=== PATIENT | female | born 1995 | race Caucasian/White ===

== ENCOUNTER 2017-09-17 19:50 | Emergency (ER) | payer MEDICAID ==
[~2017-09-17] VITALS: Ht 162.6 cm; Wt 86.0 kg
[2017-09-17] MEDS ORDERED: SODIUM CHLORIDE 0.9% 1,000 ML IV ONE (20:53)
[2017-09-17 21:22] LABS: BASOPHILS % 0.7 % (0.0-2.0); EOSINOPHILS % 0.5 % (0.0-5.0); HEMATOCRIT. 43.4 % (36.0-48.0); HEMOGLOBIN. 14.9 g/dL (12.0-16.0); MEAN CORPUSCULAR HEMOGLOBIN 29.9 pg (28.0-32.0); MEAN CORPUSCULAR VOLUME 87.1 fL (81.0-99.0); MEAN PLATELET VOLUME 8.6 fl (7.4-10.4); MONOCYTES % 7.3 % (2.0-8.0); NEUTROPHILS % 64.5 % (40.0-76.0); PLATELET 241 x1000/uL (130-400); RED BLOOD CELL COUNT 4.99 mill/uL (4.2-5.4); RED CELL DISTRIBUTION WIDTH 13.5 % (11.6-14.6)
[2017-09-17 21:29] LABS: PROTHROMBIN TIME 10.6 sec (9.4-11.6)
[2017-09-17 21:38] LABS: CARBON DIOXIDE 25 mEq/L (21-32); CHLORIDE 104 mEq/L (98-107)
[2017-09-17 22:00] VITALS: BP 119/82
== END 2017-09-17 22:40 | disposition home or self-care (01) ==
LOC: ER 20:52
DX: R07.89 Other chest pain (principal); D72.829 Elevated white blood cell count, unspecified; R00.0 Tachycardia, unspecified
CPT/HCPCS: 36415; 71010; 80053; 81025; 85025; 85610; 93005; 96360; 99285; J7030; Z7610

== ENCOUNTER 2017-12-03 10:11 | Emergency (ER) | payer MEDICAID, OTHER ==
[~2017-12-03] VITALS: Ht 162.6 cm; Wt 86.0 kg
[2017-12-03] MEDS ORDERED: ACETAMINOPHEN 325MG TABLET ONE (11:17)
[2017-12-03] MEDS ORDERED: SODIUM CHLORIDE 0.9% 1,000 ML IV ONE (11:59)
[2017-12-03 14:18] VITALS: BP 127/81
== END 2017-12-03 14:24 | disposition home or self-care (01) ==
LOC: ER 10:11
DX: J11.1 Influenza due to unidentified influenza virus with other respiratory manifestations (principal); I10 Essential (primary) hypertension; F12.90 Cannabis use, unspecified, uncomplicated
CPT/HCPCS: 71045; 81025; 87804; 93005; 96360; 96361; 99285; J7030; Z7610

== ENCOUNTER 2017-12-15 11:49 | Emergency (ER) | payer MEDICAID, OTHER ==
[~2017-12-15] VITALS: Ht 162.6 cm; Wt 86.0 kg
[2017-12-15] MEDS ORDERED: IBUPROFEN 600MG TABLET PO ONE (16:45)
[2017-12-15 18:16] VITALS: BP 158/98
== END 2017-12-15 18:17 | disposition home or self-care (01) ==
LOC: ER 11:49
DX: S39.012A Strain of muscle, fascia and tendon of lower back, initial encounter (principal); I10 Essential (primary) hypertension; V89.2XXA Person injured in unspecified motor-vehicle accident, traffic, initial encounter; Y93.89 Activity, other specified; Y92.410 Unspecified street and highway as the place of occurrence of the external cause; Y99.8 Other external cause status
CPT/HCPCS: 72100; 81025; 99284

== ENCOUNTER 2018-01-27 17:15 | Emergency (ER) | payer MEDICAID ==
[~2018-01-27] VITALS: Ht 160 cm; Wt 83.0 kg
[2018-01-27] MEDS ORDERED: ACETAMINOPHEN 325MG TABLET PO STA (18:00)
[2018-01-27] MEDS ORDERED: CLONIDINE 0.1MG TABLET PO ONE (18:00)
[2018-01-27] MEDS ORDERED: ASPIRIN 81MG TABLET PO ONE (18:00)
[2018-01-27] MEDS ORDERED: MECLIZINE 25MG TABLET PO ONE (18:00)
[2018-01-27 18:02] LABS: EOSINOPHILS % 1.8 % (0.0-5.0); HEMATOCRIT. 43.7 % (36.0-48.0); HEMOGLOBIN. 15.2 g/dL (12.0-16.0); LYMPHOCYTES % 38.1 % (20.0-50.0); MEAN CORPUSCULAR HEMOGLOBIN 30.6 pg (28.0-32.0); MEAN CORPUSCULAR VOLUME 87.7 fL (81.0-99.0); MEAN PLATELET VOLUME 8.8 fl (7.4-10.4); MONOCYTES % 6.7 % (2.0-8.0); NEUTROPHILS % 52.4 % (40.0-76.0); PLATELET 264 x1000/uL (130-400); RED BLOOD CELL COUNT 4.98 mill/uL (4.2-5.4); RED CELL DISTRIBUTION WIDTH 14.3 % (11.6-14.6)
[2018-01-27 18:07] LABS: CHLORIDE 107 mEq/L (98-107)
[2018-01-27 18:33] LABS: PROTHROMBIN TIME 10.2 sec (9.4-11.6)
[2018-01-27 18:34] LABS: HCG SCREEN NEGATIVE
[2018-01-27 18:38] LABS: ETHANOL BLOOD < 10 mg/dL
[2018-01-27 20:49] LABS: CLARITY URINE TURBID (CLEAR); COLOR URINE YELLOW (YELLOW); KETONES URINE NEGATIVE (NEGATIVE); LEUKOCYTE ESTERASE URINE 1+ (NEGATIVE); NITRITE URINE NEGATIVE (NEGATIVE); OCCULT BLOOD URINE NEGATIVE (NEGATIVE); PROTEIN URINE NEGATIVE (NEGATIVE); SPECIFIC GRAVITY URINE 1.021 (1.005-1.030); UROBILINOGEN URINE 0.2 E.U./dL (0.2-1.0)
[2018-01-27 21:00] LABS: *AMPHETAMINES SCREEN URINE NEGATIVE (NEGATIVE); *BARBITURATES SCREEN URINE NEGATIVE (NEGATIVE); *BENZODIAZEPINES SCREEN URINE NEGATIVE (NEGATIVE); *COCAINE SCREEN URINE NEGATIVE (NEGATIVE); CANNABINOID URINE SCREEN NEGATIVE (NEGATIVE); METHADONE URINE SCREEN NEGATIVE (NEGATIVE); OPIATES URINE SCREEN NEGATIVE (NEGATIVE); PHENCYCLIDINE URINE SCREEN NEGATIVE (NEGATIVE)
[2018-01-27] MEDS ORDERED: CEFTRIAXONE 1 G PREMIX 50 ML IV NR (21:45)
[2018-01-27 22:00] VITALS: BP 121/63
== END 2018-01-27 22:15 | disposition home or self-care (01) ==
LOC: ER 18:01
DX: I10 Essential (primary) hypertension (principal); N39.0 Urinary tract infection, site not specified; F12.10 Cannabis abuse, uncomplicated
CPT/HCPCS: 36415; 70450; 71045; 80053; 80305; 81003; 83690; 83880; 84484; 84703; 85025; 85610; 87077; 87086; 87186; 93005; 99285; G0482; J8597

== ENCOUNTER 2018-03-14 19:43 | Emergency (ER) | payer MEDICAID ==
[~2018-03-14] VITALS: Ht 165.1 cm; Wt 83.0 kg
[2018-03-14] MEDS ORDERED: NITROGLYCERIN 0.4MG TABLET SL SL PRN (20:45)
[2018-03-14] MEDS ORDERED: ASPIRIN 81MG TABLET PO STA (20:45)
[2018-03-14 22:12] LABS: BASOPHILS % 0.6 % (0.0-2.0); EOSINOPHILS % 0.6 % (0.0-5.0); HEMATOCRIT. 40.1 % (36.0-48.0); HEMOGLOBIN. 13.8 g/dL (12.0-16.0); LYMPHOCYTES % 30.5 % (20.0-50.0); MEAN CORPUSCULAR HEMOGLOBIN 30.1 pg (28.0-32.0); MEAN CORPUSCULAR VOLUME 87.4 fL (81.0-99.0); MEAN PLATELET VOLUME 8.5 fl (7.4-10.4); MONOCYTES % 6.3 % (2.0-8.0); PLATELET 256 x1000/uL (130-400); RED BLOOD CELL COUNT 4.59 mill/uL (4.2-5.4); RED CELL DISTRIBUTION WIDTH 13.9 % (11.6-14.6)
[2018-03-14 22:15] LABS: HCG SCREEN NEGATIVE
[2018-03-14 22:16] LABS: CHLORIDE 104 mEq/L (98-107)
[2018-03-14 22:23] LABS: D-DIMER 0.44 mg/L FEU (<0.50); INR 1.1; PARTIAL THROMBOPLASTIN TIME 27.1 sec (23.4-31.0); PROTHROMBIN TIME 11.1 sec (9.4-11.6)
[2018-03-15 04:13] VITALS: BP 127/74
== END 2018-03-15 04:20 | disposition home or self-care (01) ==
LOC: ER 20:32
DX: R07.89 Other chest pain (principal); R00.0 Tachycardia, unspecified; I10 Essential (primary) hypertension; R42 Dizziness and giddiness; R06.02 Shortness of breath; Z79.82 Long term (current) use of aspirin
CPT/HCPCS: 36415; 71045; 80048; 84443; 84484; 84703; 85025; 85379; 85610; 85730; 93005; 99285; Z7610

== ENCOUNTER 2018-11-30 10:08 | Emergency (ER) | payer SELFPAY ==
[~2018-11-30] VITALS: Ht 162.6 cm; Wt 82.0 kg
[2018-11-30] MEDS ORDERED: ONDANSETRON HCL 4MG/2ML INJ IV STA (11:07)
[2018-11-30] MEDS ORDERED: SODIUM CHLORIDE 0.9% 1,000 ML IV ONE (11:07)
[2018-11-30 12:49] LABS: CLARITY URINE CLOUDY (CLEAR); COLOR URINE YELLOW (YELLOW); KETONES URINE NEGATIVE (NEGATIVE); LEUKOCYTE ESTERASE URINE 1+ (NEGATIVE); NITRITE URINE NEGATIVE (NEGATIVE); OCCULT BLOOD URINE NEGATIVE (NEGATIVE); PH URINE 5.5 (4.5-8.0); PROTEIN URINE NEGATIVE (NEGATIVE); SPECIFIC GRAVITY URINE 1.024 (1.005-1.030); UROBILINOGEN URINE 0.2 E.U./dL (0.2-1.0)
[2018-11-30 14:46] LABS: BASOPHILS % 0.5 % (0.0-2.0); EOSINOPHILS % 0.3 % (0.0-5.0); HEMOGLOBIN. 14.2 g/dL (12.0-16.0); LYMPHOCYTES % 29.8 % (20.0-50.0); MEAN CORPUSCULAR HEMOGLOBIN 30.1 pg (28.0-32.0); MEAN CORPUSCULAR VOLUME 89.1 fL (81.0-99.0); MEAN PLATELET VOLUME 8.5 fl (7.4-10.4); MONOCYTES % 5.5 % (2.0-8.0); NEUTROPHILS % 63.9 % (40.0-76.0); PLATELET 259 x1000/uL (130-400); RED BLOOD CELL COUNT 4.72 mill/uL (4.2-5.4)
[2018-11-30 14:52] LABS: CHLORIDE 105 mEq/L (98-107)
[2018-11-30 14:54] LABS: INR 1.1; PROTHROMBIN TIME 10.8 sec (9.1-11.1)
[2018-11-30 17:34] VITALS: BP 102/59
== END 2018-11-30 17:40 | disposition home or self-care (01) ==
LOC: ER 10:08
DX: N39.0 Urinary tract infection, site not specified (principal); R42 Dizziness and giddiness; R11.2 Nausea with vomiting, unspecified; R00.2 Palpitations; D72.829 Elevated white blood cell count, unspecified; I10 Essential (primary) hypertension
CPT/HCPCS: 36415; 80053; 81003; 81025; 83690; 85025; 85610; 87077; 87086; 87186; 93005; 96361; 96374; 99284; J2405; J7030; A4315

== ENCOUNTER 2019-06-11 17:41 | Emergency (ER) | payer OTHER ==
[~2019-06-11] VITALS: Ht 162.6 cm; Wt 94.0 kg
[2019-06-11] MEDS ORDERED: CLONIDINE 0.1MG TABLET PO ONE (18:30)
[2019-06-11 20:40] LABS: BASOPHILS % 0.8 % (0.0-2.0); EOSINOPHILS % 1.1 % (0.0-5.0); HEMATOCRIT. 41.5 % (36.0-48.0); HEMOGLOBIN. 14.2 g/dL (12.0-16.0); LYMPHOCYTES % 35.9 % (20.0-50.0); MEAN CORPUSCULAR HEMOGLOBIN 30.7 pg (28.0-32.0); MEAN CORPUSCULAR VOLUME 89.5 fL (81.0-99.0); MEAN PLATELET VOLUME 8.6 fl (7.4-10.4); MONOCYTES % 6.9 % (2.0-8.0); NEUTROPHILS % 55.3 % (40.0-76.0); PLATELET 253 x1000/uL (130-400); RED BLOOD CELL COUNT 4.63 mill/uL (4.2-5.4); RED CELL DISTRIBUTION WIDTH 13.9 % (11.6-14.6)
[2019-06-11 20:47] LABS: HCG SCREEN NEGATIVE
[2019-06-11 20:51] LABS: CHLORIDE 104 mEq/L (98-107)
[2019-06-11 21:06] LABS: CREATINE KINASE 69 IU/L (26-192)
[2019-06-11 21:08] LABS: CREATINE KINASE MB FRACTION < 1.0 ng/mL (0.5-3.6)
[2019-06-11 21:55] VITALS: BP 112/75
== END 2019-06-11 21:55 | disposition home or self-care (01) ==
LOC: ER 17:41
DX: R00.2 Palpitations (principal); I10 Essential (primary) hypertension
CPT/HCPCS: 36415; 71045; 81025; 82550; 82553; 83880; 84443; 84484; 84703; 85379; 93005; 99284